=== PATIENT | female | born 1985 | race Caucasian/White ===

== ENCOUNTER 2021-01-30 10:05 | Emergency (ER) | payer OTHER ==
[~2021-01-30] VITALS: Ht 165.1 cm; Wt 108.9 kg
[~2021-01-30 10:05] MED LIST: AMOXICILLIN500 MG PO; AUGMENTIN125 MG/5 M PO; AURALGAN 15 ML15 ML OT; BACTRIM DS 8001 TA1 PO; BENTYL10 MG PO; CIPROFLOXACIN500 MG PO; CLARITIN10 MG PO; FLEXERIL10 MG PO; GEODON40 MG PO; HYCODAN 1.5 MG-1 TAB PO; HYDROCODONE BIT1 T11 PO; LATU40TA PO; MEDROL DOSEPAK4 MG PO; MOTRIN600 MG PO; MOTRIN800 MG PO; Motrin,Rufen800 MG PO; NAPROSYN500 MG PO; NKHM; NORFLEX100 MG PO; OMNICEF300 MG PO; PEN-VEE K500 MG PO; PERCOCET 325 MG1 TA2 PO; PREDNICOT20 MG PO; PREDNISONE20 MG PO; PRISTIQ50 MG PO; PROVENTIL0.09 MG/AC IH; SEPTRA DS 800 M1 TAB PO; TRAMADOL HCL50 MG PO; ZIPRASIDONE HCL40 MG PO; ZITHROMAX250 MG PO; ZOLOFT50 MG PO; ZYRTEC10 MG PO
[2021-01-30] MEDS ORDERED: NAPROSYN500 MG PO (12:59)
== END 2021-01-30 13:45 | disposition home or self-care (01) ==
LOC: ED 10:05
DX: S46.911A Strain of unspecified muscle, fascia and tendon at shoulder and upper arm level, right arm, initial encounter (principal); S09.90XA Unspecified injury of head, initial encounter; Z91.030 Bee allergy status; Y08.89XA Assault by other specified means, initial encounter; Y93.89 Activity, other specified; Y92.89 Other specified places as the place of occurrence of the external cause; Y99.8 Other external cause status

== ENCOUNTER 2021-05-31 12:53 | Emergency (ER) | payer OTHER | END 2021-05-31 14:47 | disposition left against medical advice (07) | LOC: ED 12:53 | DX: S61.412A Laceration without foreign body of left hand, initial encounter (principal); Z53.21 Procedure and treatment not carried out due to patient leaving prior to being seen by health care provider; W26.0XXA Contact with knife, initial encounter; Y93.89 Activity, other specified; Y92.89 Other specified places as the place of occurrence of the external cause; Y99.8 Other external cause status ==

== ENCOUNTER 2022-01-23 15:08 | Emergency (ER) | payer OTHER ==
[~2022-01-23] VITALS: Wt 104.3 kg
[2022-01-23] MEDS ORDERED: PREDNISONE20 M1 PO (17:05)
== END 2022-01-23 17:08 | disposition home or self-care (01) ==
LOC: ED 15:08
DX: T63.464A Toxic effect of venom of wasps, undetermined, initial encounter (principal); Z79.2 Long term (current) use of antibiotics; Z88.7 Allergy status to serum and vaccine; Y92.89 Other specified places as the place of occurrence of the external cause

== ENCOUNTER 2022-04-09 11:59 | Emergency (ER) | payer OTHER ==
[~2022-04-09] VITALS: Wt 102.1 kg
[~2022-04-09 11:59] MED LIST changes: +PREDNISONE20 M1 PO
== END 2022-04-09 17:48 | disposition home or self-care (01) ==
LOC: ED 11:59
DX: B34.9 Viral infection, unspecified (principal); Z20.822 Contact with and (suspected) exposure to COVID-19; Z88.7 Allergy status to serum and vaccine